=== PATIENT | male | born 1995 | race Hispanic/Latino ===

== ENCOUNTER 2023-05-27 18:05 | Emergency (ER) | payer SELFPAY ==
[2023-05-27] MEDS ORDERED: Acetaminophen 500 MG TAB ONE (18:34)
[2023-05-27 19:29] LABS: SARS-CoV-2 NAA Rapid Test Not Detected (NotDetected)
[2023-05-27] MEDS ORDERED: Ketorolac Tromethamine 30 MG (1 mL) VIAL ONE (20:22)
== END 2023-05-27 20:28 | disposition home or self-care (01) ==
LOC: CSHERS 18:05
DX: J10.1 Influenza due to other identified influenza virus with other respiratory manifestations (principal)
CPT/HCPCS: 71045; 93005; 96372; J1885